=== PATIENT | male | born 1975 | race Caucasian/White ===

== ENCOUNTER 2016-07-10 10:47 | Emergency (ER) | payer BC ==
[~2016-07-10] VITALS: Ht 182.9 cm; Wt 95.0 kg
[2016-07-10 10:52] VITALS: BP 117/86; PULSE 77; RESP 18; TEMP 97.9; O2SAT 100
[2016-07-10] MEDS ORDERED: CLIN1CAP5 PO (11:31)
--- NOTE | 2016-07-10 11:31 | PD ---
HPI Chief Complaint: Skin Problem Time Seen by Provider: 11:23 Travel History International Travel<30 days: Yes Contact w/Intl Traveler<30days: Yes Name of Country Traveled to: [place] Traveled to known affect area: No History of Present Illness HPI Patient is a 40-year-old male who presents emergency department for evaluation of a lump on his buttock. Patient states that he has had fevers as well. He states his symptoms started yesterday when he started feeling feverish on Thursday after he ran on the beach. He has not taken anything for the fever. He denies any nausea, vomiting, abdominal pain, rectal pain, change in bowel habits. He denies any history of the same. He does report that he was a sick child always getting fevers. He denies any flulike symptoms. He denies any significant pain but states it feels tender. PFSH Past Medical History Medical History: Denies Significant Hx Tetanus Vaccination: > 5 Years Influenza Vaccination: No Past Surgical History Appendectomy: Yes Social History Alcohol Use: Yes (Occ./weekends) Tobacco Use: No Substance Use: No Allergies-Medications (Allergen,Severity, Reaction): Coded Allergies: Penicillin (Verified Allergy, Unknown, Unknown, 07/10/16) Reported Meds & Prescriptions Reported Meds & Active Scripts Active No Active Prescriptions or Reported Medications Review of Systems Except as stated in HPI: all other systems reviewed are Neg General / Constitutional: Positive: Fever Skin: Positive Lumps Physical Exam Narrative GENERAL: Well-nourished, well-developed patient. SKIN: Warm and dry. 2 cm area of firmness noted to the right inner buttock approximately 3 cm from the rectum. No erythema, fluctuance or induration noted. HEAD: Normocephalic. EYES: No scleral icterus. No injection or drainage. NECK: Supple, trachea midline. No JVD or lymphadenopathy. CARDIOVASCULAR: Regular rate and rhythm without murmurs, gallops, or rubs. RESPIRATORY: Breath sounds equal bilaterally. No accessory muscle use. GASTROINTESTINAL: Abdomen soft, non-tender, nondistended. MUSCULOSKELETAL: No cyanosis, or edema. RECTAL EXAM: No masses or tenderness, stool is brown. BACK: Nontender without obvious deformity. No CVA tenderness. Data Data Last Documented VS Vital Signs Date Time Temp Pulse Resp B/P Pulse Ox O2 Delivery O2 Flow Rate FiO2 07/10/16 10:52 97.9 77 18 117/86 100 [facility] Medical Decision Making Medical Screen Exam Complete: Yes Emergency Medical Condition: Yes Interpretation(s) Vital Signs Date Time Temp Pulse Resp B/P Pulse Ox O2 Delivery O2 Flow Rate FiO2 07/10/16 10:52 97.9 77 18 117/86 100 Differential Diagnosis Perirectal abscess versus rectal abscess versus cellulitis versus boil versus other Narrative Course Patient is a 40-year-old male who presented to the emergency department for evaluation of a lump on his buttock. On exam there is an area of firmness on the right inner buttock, rectal exam is benign. Area is nonfluctuant, at this time patient be treated with oral antibiotics. He was given strict follow-up instructions. He was encouraged to come back to the emergency department for I& D or for reevaluation if area became enlarged, more tender. Patient was advised on medications that he will be prescribed. He was also reassured that at this time he has no fever and that there does not appear to be any systemic illness. Patient can apply warm compresses, sits baths. He is encouraged follow-up with primary care as well. Patient verbalized understanding of these instructions. Patient is stable for discharge. Diagnosis Primary Impression: Abscess of buttock, right Referrals: Primary Care Physician Patient Instructions: Abscess (GEN), Abscess Incision and Drainage (ED), General Instructions Additional Instructions: Apply warm compresses to affected area Sitz bath's Complete full course of antibiotics as directed Return to emergency department immediately for any new or worsening symptoms Follow-up with your primary doctor Med/Other Pt SpecificInfo: Prescription(s) given Scripts Clindamycin 150 Mg Lav224 Mg PO TID 10 Days Ref 0 Prov:Cheryl Verde 07/10/16 Disposition: 01 DISCHARGE HOME Condition: Stable Cheryl Verde Jul 10, 2016 11:31
[2016-07-11] MEDS ORDERED: HYDR-3516 PO (12:59)
== END 2016-07-10 11:36 | disposition home or self-care (01) ==
LOC: PHEFT 10:47
DX: L02.31 Cutaneous abscess of buttock (principal)
CPT/HCPCS: 99283

== ENCOUNTER 2016-07-10 22:58 | Observation (INO) | payer BC ==
[~2016-07-10 22:58] MED LIST: CLIN1CAP5 PO
[2016-07-10 23:00] VITALS: BP 130/81; PULSE 93; RESP 16; TEMP 100.3; O2SAT 97
[2016-07-10] MEDS ORDERED: SODIUM CHLOR 0.9% 1000 ML INJ 1,000 ML IV ONE (23:23)
[2016-07-10] MEDS ORDERED: SODIUM CHLOR 0.9% 1000 ML INJ 800 ML IV ONE (23:23)
--- NOTE | 2016-07-10 23:29 | PD ---
HPI Chief Complaint: Fever Time Seen by Provider: 23:17 Travel History International Travel<30 days: Yes Contact w/Intl Traveler<30days: Yes Name of Country Traveled to: [place], [place], [place] Traveled to known affect area: No History of Present Illness HPI 40-year-old male here for evaluation of perirectal pain and fever. For last 5 days the patient has had fever and has noticed increasing pain and tenderness to his right buttock/rectal area. He went to our [place] facility earlier today and was started on clindamycin. He states he has been taking Advil every 4 hours, however fever persists. No abdominal pain. No nausea or vomiting. No diarrhea. No chest pain or dyspnea. No cough. History of appendectomy. No other abdominal surgeries. No urinary symptoms. No history of IVDU. PFSH Past Surgical History Appendectomy: Yes Social History Alcohol Use: Yes (Occ./weekends) Tobacco Use: No Substance Use: No Allergies-Medications (Allergen,Severity, Reaction): Coded Allergies: Penicillin (Verified Allergy, Unknown, Unknown, 07/10/16) Reported Meds & Prescriptions Reported Meds & Active Scripts Active Clindamycin (Clindamycin HCl) 150 Mg Cap 300 Mg PO TID 10 Days Review of Systems Except as stated in HPI: all other systems reviewed are Neg Physical Exam Narrative GENERAL: Well-developed, well-nourished, diaphoretic, no acute distress. SKIN: Diaphoretic, warm. HEAD: Atraumatic. Normocephalic. EYES: Pupils equal and round. No scleral icterus. No injection or drainage. ENT: Mucous membranes pink and moist. NECK: Trachea midline. No JVD. No nuchal rigidity. CARDIOVASCULAR: Regular rate and rhythm. RESPIRATORY: No accessory muscle use. Clear to auscultation. Breath sounds equal bilaterally. GASTROINTESTINAL: Abdomen soft, non-tender, nondistended. RECTUM: Significant tenderness to right perirectal area with a large area of induration, no fluctuance. This area was evaluated using a bedside ultrasound and shows a large hypoechoic region which is likely an abscess. No hemorrhoids. MUSCULOSKELETAL: No obvious deformities. No clubbing. No cyanosis. No edema. NEUROLOGICAL: Awake and alert. No obvious cranial nerve deficits. Motor grossly within normal limits. Normal speech. PSYCHIATRIC: Appropriate mood and affect; insight and judgment normal. Data Data Last Documented VS Vital Signs Date Time Temp Pulse Resp B/P Pulse Ox O2 Delivery O2 Flow Rate FiO2 07/10/16 23:45 98.5 61 18 135/63 95 Room Air Orders Complete Blood Count With Diff (07/10/16 23:23) Comprehensive Metabolic Panel (07/10/16 23:23) Prothrombin Time / Inr (Pt) (07/10/16 23:23) Act Partial Throm Time (Ptt) (07/10/16 23:23) Lactic Acid Sepsis Protocol (07/10/16 23:23) Blood Culture (07/10/16 23:23) Ecg Monitoring (07/10/16 23:23) Iv Access Insert/Monitor (07/10/16 23:23) Oximetry (07/10/16 23:23) Acetaminophen (Tylenol) (07/10/16 23:30) Sodium Chlor 0.9% 1000 Ml Inj (Ns 1000 M (07/10/16 23:23) Sodium Chlor 0.9% 1000 Ml Inj (Ns 1000 M (07/10/16 23:23) Morphine Inj (Morphine Inj) (07/10/16 23:30) Iohexol 350 Inj (Omnipaque 350 Inj) (07/11/16 00:09) Ct Abd/Pel W Iv Contrast(Rout) (07/11/16 23:23) Labs Laboratory Tests Test 07/10/16 07/10/16 23:30 23:41 White Blood Count 15.3 TH/MM3 Red Blood Count 4.46 MIL/MM3 Hemoglobin 13.5 GM/DL Hematocrit 39.3 % Mean Corpuscular Volume 88.1 FL Mean Corpuscular Hemoglobin 30.2 PG Mean Corpuscular Hemoglobin 34.2 % Concent Red Cell Distribution Width 12.7 % Platelet Count 162 TH/MM3 Mean Platelet Volume 9.8 FL Neutrophils (%) (Auto) 73.3 % Lymphocytes (%) (Auto) 13.8 % Monocytes (%) (Auto) 11.5 % Eosinophils (%) (Auto) 1.1 % Basophils (%) (Auto) 0.3 % Neutrophils # (Auto) 11.2 TH/MM3 Lymphocytes # (Auto) 2.1 TH/MM3 Monocytes # (Auto) 1.8 TH/MM3 Eosinophils # (Auto) 0.2 TH/MM3 Basophils # (Auto) 0.0 TH/MM3 CBC Comment DIFF FINAL Differential Comment Prothrombin Time 11.4 SEC Prothromb Time International 1.0 RATIO Ratio Activated Partial 28.9 SEC Thromboplast Time Sodium Level 136 MEQ/L Potassium Level 3.7 MEQ/L Chloride Level 102 MEQ/L Carbon Dioxide Level 26.4 MEQ/L Anion Gap 8 MEQ/L Blood Urea Nitrogen 16 MG/DL Creatinine 1.20 MG/DL Estimat Glomerular Filtration 67 ML/MIN Rate Random Glucose 112 MG/DL Calcium Level 9.1 MG/DL Total Bilirubin 0.4 MG/DL Aspartate Amino Transf 24 U/L (AST/SGOT) Alanine Aminotransferase 36 U/L (ALT/SGPT) Alkaline Phosphatase 60 U/L Total Protein 7.6 GM/DL Albumin 3.7 GM/DL Lactic Acid Level 0.8 mmol/L [facility] Medical Decision Making Medical Screen Exam Complete: Yes Emergency Medical Condition: Yes Medical Record Reviewed: Yes Differential Diagnosis Perirectal abscess, sepsis, cellulitis, mass, bacteremia, Narrative Course Initial vital signs show heart rate 93, blood pressure 130/81, pulse ox 97% on room air, oral temp of 100.3 degrees Fahrenheit. CBC is remarkable for WBC 15.3 with 73% neutrophils. CMP is unremarkable. Lactic acid is 0.8. CT abdomen pelvis shows a 3.3 cm right perianal fluid collection which is most likely an abscess. The patient was given clindamycin and Flagyl. There is no colorectal coverage for the emergency department tonight. He will be admitted for overnight observation for colorectal surgery consultation in the morning. Case discussed with hospitalist Dr. Gomez who will admit the patient to his service. Diagnosis Primary Impression: Perianal abscess Admitting Information Admitting Physician Requests: Observation [place] Mccarthy MD Jul 10, 2016 23:29
[2016-07-10] MEDS ORDERED: MORPHINE SULFATE 4 MG/ML INJ IV PUSH ONE (23:30)
[2016-07-10] MEDS ORDERED: ACETAMINOPHEN 325 MG TAB PO ONE (23:30)
[2016-07-10 23:45] VITALS: BP 135/63; PULSE 61; RESP 18; TEMP 98.5; O2SAT 95
[2016-07-11 00:01] LABS: AUTOMATED NEUTROPHIL # 11.2 TH/MM3 (1.8-7.7); BASOPHIL % 0.3 % (0.0-2.0); EOSINOPHIL # 0.2 TH/MM3 (0-0.4); EOSINOPHIL % 1.1 % (0.0-4.0); HEMATOCRIT 39.3 % (39.0-51.0); HEMO FLAGS DIFF FINAL; LYMPH % 13.8 % (9.0-44.0); LYMPHOCYTE # 2.1 TH/MM3 (1.0-4.8); MEAN CELL VOLUME 88.1 FL (80.0-100.0); MEAN CORPUSCULAR HEMOGLOBIN 30.2 PG (27.0-34.0); MEAN CORPUSCULAR HGB CONC 34.2 % (32.0-36.0); MONO % 11.5 % (0.0-8.0); NEUT % 73.3 % (16.0-70.0); PLATELET COUNT 162 TH/MM3 (150-450); RED BLOOD COUNT 4.46 MIL/MM3 (4.50-5.90); RED CELL DISTRIBUTION WIDTH 12.7 % (11.6-17.2); WHITE BLOOD COUNT 15.3 TH/MM3 (4.0-11.0)
[2016-07-11 00:09] LABS: APTT (PATIENT) 28.9 SEC (24.3-30.1); PROTHROMBIN TIME - PATIENT 11.4 SEC (9.8-11.6)
[2016-07-11] MEDS ORDERED: IOHEXOL 350 MG/ML 10 ML VIAL (for RAD DIAG) IV ONE (00:09)
[2016-07-11 00:11] LABS: ALT (GPT) 36 U/L (12-78); ANION GAP 8 MEQ/L (5-15); AST (GOT) 24 U/L (15-37); BICARBONATE 26.4 MEQ/L (21.0-32.0); BLOOD UREA NITROGEN 16 MG/DL (7-18); CHLORIDE 102 MEQ/L (98-107); GLOMERULAR FILTRATION RATE 67 ML/MIN (>89); POTASSIUM 3.7 MEQ/L (3.5-5.1); SODIUM (NA) 136 MEQ/L (136-145)
[2016-07-11 00:14] LABS: ALKALINE PHOSPHATASE 60 U/L (45-117); TOTAL BILIRUBIN ADULT 0.4 MG/DL (0.2-1.0)
--- NOTE | 2016-07-11 00:27 | RADRPT ---
EXAM DATE/TIME: 07/11/2016 00:00 [place] COMPARISON: No previous studies available for comparison. INDICATIONS : Fever, possible perirectal abscess. IV CONTRAST: 98 cc Omnipaque 350 (iohexol) IV ORAL CONTRAST: No oral contrast ingested. RADIATION DOSE: 13.97 CTDIvol (mGy) MEDICAL HISTORY : None SURGICAL HISTORY : Appendectomy. ENCOUNTER: Initial ACUITY: 1 day PAIN SCALE: 6/10 LOCATION: abdomen TECHNIQUE: Volumetric scanning of the abdomen and pelvis was performed. Using automated exposure control and ad justment of the mA and/or kV according to patient size, radiation dose was kept as low as reasonably achievable to obtain optimal diagnostic quality images. FINDINGS: CT Abdomen: The spleen, pancreas, right kidney, adrenals are unremarkable. There is no evidence for a ny appreciable pathological adenopathy, free fluid, or bowel obstruction. There is questionable 2 cm low attenuating lesion in the left hepatic lobe very subtle in appearance possibly artifactually cre ated. It could potentially be a hemangioma. The appearance is nonspecific. There is a tiny subcentime ter simple cyst in the left kidney. CT pelvis: There is a well-defined fluid collection adjacent to the anus on the right side measuring 3.3 cm in size most likely an abscess. The prostate gland is inhomogeneous and measures 3.4 x 4.2 cm in AP and transverse diameters and nonspecific. CONCLUSION: 1. Small perianal abscess on the right side in the perineum. 2. Questionable low attenuating lesion in the liver and follow up is suggested with abdominal MRI wit h intravenous contrast in 3 months. Riya Nguyen MD on July 11, 2016 at 0:21 Board Certified Radiologist. This report was verified electronically.
[2016-07-11] MEDS ORDERED: CLINDAMYCIN INJ 600 MG in SODIUM CHLORIDE 0.9% INJ 100 ML IV ONE (00:45)
[2016-07-11] MEDS ORDERED: metroNIDAZOLE 500 MG INJ 100 ML IV ONE (00:45)
[2016-07-11 01:59] VITALS: BP 129/58; PULSE 60; RESP 18; TEMP 98; O2SAT 97
[2016-07-11] MEDS ORDERED: NALOXONE HCL 0.4 MG/ML AMP IV PRN (06:00)
[2016-07-11] MEDS ORDERED: SODIUM CHLORIDE 0.9% FLUSH 5 ML FLUSH FLUSH PRN (06:00)
[2016-07-11] MEDS ORDERED: CIPROFLOXACIN 400 MG PREMIX 200 ML IV SCH (07:45)
[2016-07-11] MEDS ORDERED: ONDANSETRON HCL 4 MG/2 ML VIAL IV PUSH PRN (07:45)
[2016-07-11] MEDS ORDERED: metroNIDAZOLE 500 MG INJ 100 ML IV SCH (07:45)
[2016-07-11] MEDS ORDERED: ACETAMINOPHEN/HYDROcodone 325 MG/5 MG TAB PO PRN (07:45)
[2016-07-11] MEDS ORDERED: ACETAMINOPHEN 325 MG TAB PO PRN (07:45)
--- NOTE | 2016-07-11 07:46 | HHI.HP ---
[facility] No Primary Care Physician Admission Diagnosis perianal abscess Diagnoses: (1) Perianal abscess Travel History International Travel<30 Days: Yes Contact w/Intl Traveler <30 Da: Yes Name of Country Traveled to: [place], [place], [place] Traveled to Known Affected Are: No Sepsis Criteria SIRS Criteria (2 or more): Heart rate over 90, WBC > 73047, < 4000 or > 10% bands Sepsis Criteria (SIRS+source): Infect source susp/known Criteria Outcome: Meets sepsis criteria History of Present Illness patient is a 40 y/o male who presented to ER with pain to the right buttock. he says that he started to feel a ' pimple' a few days ago. it gradually got bigger and more painful and along with it he started to have some fever at home. he says that he tried some advil with no improvement. he came to ER a couple of days ago and was started on Clindamycin with no significant relief. he denies any abdominal pain, nausea or vomiting. Review of Systems Constitutional: COMPLAINS OF: Fever, DENIES: Weight loss, Chills, Night Sweats Eyes: DENIES: Blurred vision, Diplopia, Vision loss, Double Vision Ears, nose, mouth, throat: DENIES: Tinnitus, Vertigo, Throat pain, Epistaxis Respiratory: DENIES: Apneas, Cough, Snoring, Wheezing, Hemoptysis, Sputum production, Shortness of breath Cardiovascular: DENIES: Chest pain, Palpitations, Syncope, Dyspnea on Exertion , PND, Lower Extremity Edema, Orthopnea, Claudication Gastrointestinal: DENIES: Abdominal pain, Black stools, Bloody stools, Constipation, Diarrhea, Nausea, Vomiting, Difficulty Swallowing, Anorexia Genitourinary: DENIES: Urinary frequency, Urgency, Hematuria, Dysuria Musculoskeletal: DENIES: Joint pain, Muscle aches, Stiffness, Joint Swelling Integumentary: DENIES: Rash Neurologic: DENIES: Abnormal gait, Headache, Localized weakness, Paresthesias, Seizures, Speech Problems, Tremor, Poor Balance Psychiatric: DENIES: Anxiety, Confusion, Mood changes, Depression, Hallucinations, Agitation, Suicidal Ideation, Homicidal Ideation, Delusions Other pain to the right buttock. Past Family Social History Past Medical History not significant. tuberculosis Past Surgical History appendectomy Reported Medications clindamycin Allergies: Coded Allergies: Penicillin (Verified Allergy, Unknown, Unknown, 07/10/16) Active Ordered Medications Current Medications Acetaminophen 650 mg 650 mg ONCE ONCE PO Last administered on 07/10/16 23:50 ; Start 07/10/16 at 23:30; Stop 07/10/16 at 23:31; Status DC Sodium Chloride 1,000 ml @ 1,000 mls/hr Q1H ONCE IV Last administered on 23:49; Start 07/10/16 at 23:23; Stop 07/11/16 at 00:22; Status DC Sodium Chloride (NS 1000 ml Inj) 800 ml @ 1,000 mls/hr Q48M ONCE IV Last administered on 07/10/16 23:50; Start 07/10/16 at 23:23; Stop 07/11/16 at 00:10 ; Status DC Morphine Sulfate (Morphine Inj) 4 mg ONCE ONCE IV PUSH Last administered on 23:50; Start 07/10/16 at 23:30; Stop 07/10/16 at 23:31; Status DC Iohexol 98 ml 98 ml STK-MED ONCE IV Last administered on 07/11/16 00:09; Start 07/11/16 at 00:09; Stop 07/11/16 at 00:10; Status DC Metronidazole 100 ml @ 100 mls/hr ONCE ONCE IV Last administered on 00:57; Start 07/11/16 at 00:45; Stop 07/11/16 at 01:44; Status DC Clindamycin Phosphate 600 mg/ Sodium Chloride 104 ml @ 208 mls/hr ONCE ONCE IV Last administered on 07/11/16 02:18; Start 07/11/16 at 00:45; Stop at 01:14; Status DC Sodium Chloride (NS 1000 ml Inj) 1,000 ml @ 100 mls/hr Q10H IV ; Start at 05:51; Stop 07/12/16 at 05:50 IV Flush (NS Flush) 2 ml UNSCH PRN FLUSH FLUSH AFTER USING IV ACCESS; Start at 06:00 IV Flush (NS Flush) 2 ml BID FLUSH ; Start 07/11/16 at 09:00 Naloxone HCl (Narcan Inj) 0.4 mg UNSCH PRN IV SEE LABEL COMMENTS; Start at 06:00 Family History not relevant to this admission. Social History doesn't smoke. occasionally drinks. Physical Exam Vital Signs Vital Signs Date Time Temp Pulse Resp B/P Pulse Ox O2 Delivery O2 Flow Rate FiO2 07/11/16 01:59 98.0 60 18 129/58 97 Room Air 07/10/16 23:45 98.5 61 18 135/63 95 Room Air 07/10/16 23:00 100.3 93 16 130/81 97 Room Air Physical Exam GENERAL: This is a well-nourished, well-developed patient, in no apparent distress. SKIN: No rashes, ecchymoses or lesions. Cool and dry. HEAD: Atraumatic. Normocephalic. No temporal or scalp tenderness. EYES: Pupils equal round and reactive. Extraocular motions intact. No scleral icterus. No injection or drainage. ENT: Nose without bleeding, purulent drainage or septal hematoma. Throat without erythema, tonsillar hypertrophy or exudate. Uvula midline. Airway patent. NECK: Trachea midline. No JVD or lymphadenopathy. Supple, nontender, no meningeal signs. CARDIOVASCULAR: Regular rate and rhythm without murmurs, gallops, or rubs. RESPIRATORY: Clear to auscultation. Breath sounds equal bilaterally. No wheezes , rales, or rhonchi. GASTROINTESTINAL: Abdomen soft, non-tender, nondistended. No hepato-splenomegaly , or palpable masses. No guarding. MUSCULOSKELETAL: Extremities without clubbing, cyanosis, or edema. No joint tenderness, effusion, or edema noted. No calf tenderness. Negative Homans sign bilaterally. NEUROLOGICAL: Awake and alert. Cranial nerves II through XII intact. Motor and sensory grossly within normal limits. Five out of 5 muscle strength in all muscle groups. Normal speech. Laboratory Laboratory Tests Test 07/10/16 07/10/16 23:30 23:41 White Blood Count 15.3 Red Blood Count 4.46 Hemoglobin 13.5 Hematocrit 39.3 Mean Corpuscular Volume 88.1 Mean Corpuscular Hemoglobin 30.2 Mean Corpuscular Hemoglobin 34.2 Concent Red Cell Distribution Width 12.7 Platelet Count 162 Mean Platelet Volume 9.8 Neutrophils (%) (Auto) 73.3 Lymphocytes (%) (Auto) 13.8 Monocytes (%) (Auto) 11.5 Eosinophils (%) (Auto) 1.1 Basophils (%) (Auto) 0.3 Neutrophils # (Auto) 11.2 Lymphocytes # (Auto) 2.1 Monocytes # (Auto) 1.8 Eosinophils # (Auto) 0.2 Basophils # (Auto) 0.0 CBC Comment DIFF FINAL Differential Comment Prothrombin Time 11.4 Prothromb Time International 1.0 Ratio Activated Partial 28.9 Thromboplast Time Sodium Level 136 Potassium Level 3.7 Chloride Level 102 Carbon Dioxide Level 26.4 Anion Gap 8 Blood Urea Nitrogen 16 Creatinine 1.20 Estimat Glomerular Filtration 67 Rate Random Glucose 112 Calcium Level 9.1 Total Bilirubin 0.4 Aspartate Amino Transf 24 (AST/SGOT) Alanine Aminotransferase 36 (ALT/SGPT) Alkaline Phosphatase 60 Total Protein 7.6 Albumin 3.7 Lactic Acid Level 0.8 Date/Time Procedure Status Source Growth 07/10/16 23:40 Aerobic Blood Culture Received Blood Peripheral Pending 07/10/16 23:40 Anaerobic Blood Culture Received Blood Peripheral Pending Result Diagram: 07/10/16 2330 07/10/16 2330 Imaging Last Impressions Abdomen/Pelvis CT 07/11/162322 Signed Impressions: Service Date/Time: Monday, July 11, 2016 00:00 - CONCLUSION: 1. Small perianal abscess on the right side in the perineum. 2. Questionable low attenuating lesion in the liver and follow up is suggested with abdominal MRI with intravenous contrast in 3 months. Riya Nguyen MD Assessment and Plan Assessment and Plan A/P - sepsis due to perianal abscess- failed outpatient therapy continue with antibiotics- pain control- colorectal surgery consulted -liver lesion- f/u as outpatient- this was d/w the patient Discussed Condition With the patient. Gwendolyn Mitchell MD Jul 11, 2016 07:45
[2016-07-11 08:00] VITALS: BP 145/70; PULSE 83; RESP 18; TEMP 103.1; O2SAT 98
[2016-07-11] MEDS: SODIUM CHLOR 0.9% 1000 ML INJ 1,000 ML IV SCH ×2 (08:00→16:28)
[2016-07-11] MEDS: CIPROFLOXACIN 400 MG PREMIX 200 ML IV SCH ×2 (08:01→20:00)
[2016-07-11] MEDS: SODIUM CHLORIDE 0.9% FLUSH 5 ML FLUSH FLUSH SCH ×2 (08:01→20:30)
[2016-07-11] MEDS: metroNIDAZOLE 500 MG INJ 100 ML IV SCH ×2 (11:09→16:27)
[2016-07-11 11:36] VITALS: TEMP 99.9
[2016-07-11] MEDS ORDERED: LIDOCAINE HCL 1% 50 ML VIAL ONE (12:41)
[2016-07-11] MEDS ORDERED: MORPHINE SULFATE 4 MG/ML INJ IV PUSH ONE (12:45)
[2016-07-11] MEDS ORDERED: LIDOCAINE 1%/EPINEPHrine 1:100,000 SOLN 50 ML VIAL INFIL ONE (12:45)
[2016-07-11] MEDS ORDERED: HYDR-3516 PO (12:59)
--- NOTE | 2016-07-11 13:13 | MB ---
cc: MONA BARRERA M.D. DATE OF CONSULTATION: 07/11/2016 CHIEF COMPLAINT Perianal abscess. HISTORY OF PRESENT ILLNESS The patient is a 40-year-old healthy male who about four or five days ago noticed a small pimple/lump in the anal area. This has gradually gotten bigger and bigger and more painful. He has had no discharge however. He has not had any previous anal abscesses. He did have some low-grade fevers at home. He is not able to quantify that. He was seen in the emergency department two days ago and was started on clindamycin, but there was no improvement in his symptoms so he came back to the emergency room. PAST MEDICAL HISTORY Tuberculosis. PAST SURGICAL HISTORY Appendectomy. ALLERGIES PENICILLIN. MEDICATIONS None. REVIEW OF SYSTEMS The review of systems is negative for abdominal pain, nausea, vomiting, weight loss, chills, cough, shortness of breath, chest pain, dysuria, hematuria, headache, difficulty with mood or mentation, difficulty with ambulation. PHYSICAL EXAMINATION GENERAL: An alert male who appears uncomfortable. NEUROLOGIC: Grossly intact. SKIN: Warm and dry. HEAD: Normocephalic, atraumatic. CARDIOVASCULAR: Regular rate. CHEST: Breathing is symmetric bilaterally and nonlabored. ABDOMEN: Benign. EXTREMITIES: No edema. ANAL: External anal exam on the right side just in the lateral position, the patient has a fluctuant protrusion which is mildly warm. LABORATORY DATA Laboratory work reveals a white count of 15.3, hemoglobin of 13.5 and platelets of 162. Chemistry is basically normal with the exception of a glucose of 112. Coagulation is normal. IMPRESSION Perianal abscess. PLAN I will drain him here in the emergency department today, and then he can be discharged home with some pain medicine. He will not need antibiotics. I will follow-up with him in the office later this week. MD LAURA Willson/GIOVANY /12:33 PM /1:07 PM DAVIS
[2016-07-11] MEDS: IBUPROFEN 400 MG TAB PO PRN (14:12)
[2016-07-11 15:24] VITALS: BP 125/55; PULSE 88; RESP 18; TEMP 100.6; O2SAT 95
[2016-07-11 15:56] VITALS: TEMP 100.6
[2016-07-11 19:57] VITALS: BP 99/55; PULSE 58; RESP 20; TEMP 98.3; O2SAT 96
[2016-07-12] MEDS: SODIUM CHLOR 0.9% 1000 ML INJ 1,000 ML IV SCH (00:31)
[2016-07-12] MEDS: metroNIDAZOLE 500 MG INJ 100 ML IV SCH ×2 (00:31→09:00)
[2016-07-12 00:37] VITALS: BP 105/60; PULSE 69; RESP 19; TEMP 100.2; O2SAT 96
[2016-07-12] MEDS: IBUPROFEN 400 MG TAB PO PRN (00:43)
[2016-07-12 04:43] VITALS: BP 114/69; PULSE 56; RESP 19; TEMP 99.3; O2SAT 97
[2016-07-12 06:13] LABS: ANION GAP 4 MEQ/L (5-15); AST (GOT) 13 U/L (15-37); BICARBONATE 29.6 MEQ/L (21.0-32.0); BLOOD UREA NITROGEN 14 MG/DL (7-18); CHLORIDE 105 MEQ/L (98-107); GLOMERULAR FILTRATION RATE 78 ML/MIN (>89); POTASSIUM 4.6 MEQ/L (3.5-5.1); SODIUM (NA) 139 MEQ/L (136-145)
[2016-07-12 06:14] LABS: ALKALINE PHOSPHATASE 52 U/L (45-117); ALT (GPT) 24 U/L (12-78); TOTAL BILIRUBIN ADULT 0.6 MG/DL (0.2-1.0)
[2016-07-12 07:05] LABS: AUTOMATED NEUTROPHIL # 8.1 TH/MM3 (1.8-7.7); BASOPHIL % 0.1 % (0.0-2.0); EOSINOPHIL # 0.2 TH/MM3 (0-0.4); EOSINOPHIL % 1.8 % (0.0-4.0); HEMATOCRIT 35.6 % (39.0-51.0); HEMO FLAGS DIFF FINAL; LYMPH % 18.1 % (9.0-44.0); LYMPHOCYTE # 2.2 TH/MM3 (1.0-4.8); MEAN CELL VOLUME 88.9 FL (80.0-100.0); MEAN CORPUSCULAR HEMOGLOBIN 30.2 PG (27.0-34.0); MEAN CORPUSCULAR HGB CONC 33.9 % (32.0-36.0); MONO % 13.4 % (0.0-8.0); NEUT % 66.6 % (16.0-70.0); PLATELET COUNT 141 TH/MM3 (150-450); RED CELL DISTRIBUTION WIDTH 12.8 % (11.6-17.2); WHITE BLOOD COUNT 12.2 TH/MM3 (4.0-11.0)
[2016-07-12 07:31] VITALS: BP 102/62; PULSE 57; RESP 18; TEMP 97.9; O2SAT 96
[2016-07-12] MEDS: CIPROFLOXACIN 400 MG PREMIX 200 ML IV SCH (08:00)
--- NOTE | 2016-07-12 08:55 | HHI.PR ---
Subjective Remarks buttock pain has much improved. low grade fever last night but no fever this morning. wants to go home today. Objective Vitals Vital Signs Date Time Temp Pulse Resp B/P Pulse Ox O2 Delivery O2 Flow Rate FiO2 07/12/16 07:31 97.9 57 18 102/62 96 07/12/16 04:43 99.3 56 19 114/69 97 07/12/16 00:37 100.2 69 19 105/60 96 07/11/16 19:57 98.3 58 20 99/55 96 07/11/16 15:56 100.6 07/11/16 15:24 100.6 88 18 125/55 95 07/11/16 11:36 99.9 Result Diagram: 07/12/16 0504 07/12/16 0504 Imaging Last Impressions Abdomen/Pelvis CT 07/11/162322 Signed Impressions: Service Date/Time: Monday, July 11, 2016 00:00 - CONCLUSION: 1. Small perianal abscess on the right side in the perineum. 2. Questionable low attenuating lesion in the liver and follow up is suggested with abdominal MRI with intravenous contrast in 3 months. Riya Nguyen MD Objective Remarks GENERAL: This is a well-nourished, well-developed patient, in no apparent distress. CARDIOVASCULAR: Regular rate and regular rhythm without murmurs, gallops, or rubs. RESPIRATORY: Clear to auscultation. Breath sounds equal bilaterally. No wheezes , rales, or rhonchi. GASTROINTESTINAL: Abdomen soft, non-tender, nondistended. Normal, active bowel sounds MUSCULOSKELETAL: Extremities without clubbing, cyanosis, or edema. NEURO: Alert & Oriented x4 to person, place, time, situation. Moves all ext x4 skin; s/p perianal abscess drainage- site covered with clean dressing. Procedures drainage of the perianal abscess Medications and IVs Current Medications Acetaminophen 650 mg 650 mg ONCE ONCE PO Last administered on 07/10/16 23:50 ; Start 07/10/16 at 23:30; Stop 07/10/16 at 23:31; Status DC Sodium Chloride 1,000 ml @ 1,000 mls/hr Q1H ONCE IV Last administered on 23:49; Start 07/10/16 at 23:23; Stop 07/11/16 at 00:22; Status DC Sodium Chloride (NS 1000 ml Inj) 800 ml @ 1,000 mls/hr Q48M ONCE IV Last administered on 07/10/16 23:50; Start 07/10/16 at 23:23; Stop 07/11/16 at 00:10 ; Status DC Morphine Sulfate (Morphine Inj) 4 mg ONCE ONCE IV PUSH Last administered on 23:50; Start 07/10/16 at 23:30; Stop 07/10/16 at 23:31; Status DC Iohexol 98 ml 98 ml STK-MED ONCE IV Last administered on 07/11/16 00:09; Start 07/11/16 at 00:09; Stop 07/11/16 at 00:10; Status DC Metronidazole 100 ml @ 100 mls/hr ONCE ONCE IV Last administered on 00:57; Start 07/11/16 at 00:45; Stop 07/11/16 at 01:44; Status DC Clindamycin Phosphate 600 mg/ Sodium Chloride 104 ml @ 208 mls/hr ONCE ONCE IV Last administered on 07/11/16 02:18; Start 07/11/16 at 00:45; Stop at 01:14; Status DC Sodium Chloride (NS 1000 ml Inj) 1,000 ml @ 100 mls/hr Q10H IV Last administered on 07/12/16 00:31; Start 07/11/16 at 05:51; Stop 07/12/16 at 05:50 ; Status DC IV Flush (NS Flush) 2 ml UNSCH PRN FLUSH FLUSH AFTER USING IV ACCESS; Start at 06:00 IV Flush (NS Flush) 2 ml BID FLUSH ; Start 07/11/16 at 09:00 Naloxone HCl 0.4 mg 0.4 mg UNSCH PRN IV SEE LABEL COMMENTS; Start 07/11/16 at 06:00 Ciprofloxacin/ Dextrose 200 ml @ 200 mls/hr Q12H IV ; Start 07/11/16 at 07:45; Stop 07/11/16 at 07:45; Status DC Metronidazole (Flagyl 500 Mg Inj) 100 ml @ 100 mls/hr Q8H IV ; Start 07/11/16 at 07:45; Stop 07/11/16 at 07:45; Status DC Acetaminophen (Tylenol) 650 mg Q4H PRN PO FEVER,PAIN 1-3 Last administered on 08:01; Start 07/11/16 at 07:45; Stop 07/11/16 at 13:14; Status DC Acetaminophen/ Hydrocodone Bitart ([place] 5-325 Mg) 1 tab Q4H PRN PO PAIN >3; Start 07/11/16 at 07:45 Ondansetron HCl 4 mg 4 mg Q8HR PRN IV PUSH NAUSEA; Start 07/11/16 at 07:45 Ciprofloxacin/ Dextrose 200 ml @ 200 mls/hr Q12H IV Last administered on 08:01; Start 07/11/16 at 08:00 Metronidazole (Flagyl 500 Mg Inj) 100 ml @ 100 mls/hr Q8H IV Last administered on 07/12/16 00:31; Start 07/11/16 at 09:00 Lidocaine/ Epinephrine (Xylocaine-Epi 1%-1:100,000 Inj) 50 ml ONCE ONCE INFIL ; Start 07/11/16 at 12:45; Stop 07/11/16 at 12:46; Status DC Morphine Sulfate (Morphine Inj) 4 mg ONCE ONCE IV PUSH Last administered on 13:08; Start 07/11/16 at 12:45; Stop 07/11/16 at 12:46; Status DC Lidocaine HCl (Xylocaine 1% Inj (50 ml)) 50 ml STK-MED ONCE .ROUTE ; Start 07/11 at 12:41; Stop 07/11/16 at 12:42; Status DC Ibuprofen (Motrin) 400 mg Q6HR PRN PO FEVER/PAIN 1-3 Last administered on 00:43; Start 07/11/16 at 13:15 A/P Assessment and Plan - sepsis due to perianal abscess- failed outpatient therapy- s/p drainage in ER colorectal surgery consult appreciated; recommended outpatient f/u with no antibiotics.continue pain control. -liver lesion- f/u as outpatient- this was d/w the patient Discharge Planning dc home today with f/u with pcp and surgery. see med list. d/w the patient and Gwendolyn Ludn MD Jul 12, 2016 08:55
--- NOTE | 2016-07-12 08:56 | HHI.DCPOC ---
Discharge Care Plan Diagnosis: (1) Perianal abscess Your Health Problems Are: Inflammation Swelling Goals to Promote Your Health * To prevent worsening of your condition and complications * To maintain your health at the optimal level Directions to Meet Your Goals Take your medications as prescribed Follow your dietary instruction Follow activity as directed Keep your appointments as scheduled Take your immunizations and boosters as scheduled If your symptoms worsen call your PCP, if no PCP go to Urgent Care Center or Emergency Room Smoking is Dangerous to Your Health. Avoid second hand smoke Call the 24-hour hour crisis hotline for domestic abuse at Gwendolyn Mitchell MD Jul 12, 2016 08:56
--- NOTE | 2016-07-12 08:57 | HHI.DS ---
Discharge Summary Admission Date Jul 11, 2016 at 00:39 Discharge Date: Jul 12, 2016 Admitting Diagnosis perianal abscess (1) Perianal abscess ICD Code: K61.0 Diagnosis: Principal Procedures drainage of the perianal abscess Brief History - From Admission patient is a 40 y/o male who presented to ER with pain to the right buttock. he says that he started to feel a ' pimple' a few days ago. it gradually got bigger and more painful and along with it he started to have some fever at home. he says that he tried some advil with no improvement. he came to ER a couple of days ago and was started on Clindamycin with no significant relief. he denies any abdominal pain, nausea or vomiting. CBC/BMP: 07/12/16 0504 07/12/16 0504 Significant Findings Laboratory Tests Test 07/10/16 07/12/16 23:30 05:04 White Blood Count 15.3 TH/MM3 12.2 TH/MM3 (4.0-11.0) (4.0-11.0) Red Blood Count 4.46 MIL/MM3 4.00 MIL/MM3 (4.50-5.90) (4.50-5.90) Neutrophils (%) (Auto) 73.3 % (16.0-70.0) Monocytes (%) (Auto) 11.5 % 13.4 % (0.0-8.0) (0.0-8.0) Neutrophils # (Auto) 11.2 TH/MM3 8.1 TH/MM3 (1.8-7.7) (1.8-7.7) Monocytes # (Auto) 1.8 TH/MM3 1.6 TH/MM3 (0-0.9) (0-0.9) Estimat Glomerular Filtration 67 ML/MIN (>89) 78 ML/MIN (>89) Rate Random Glucose 112 MG/DL (74-106) Hemoglobin 12.1 GM/DL (13.0-17.0) Hematocrit 35.6 % (39.0-51.0) Platelet Count 141 TH/MM3 (150-450) Anion Gap 4 MEQ/L (5-15) Calcium Level 8.4 MG/DL (8.5-10.1) Aspartate Amino Transf 13 U/L (15-37) (AST/SGOT) Albumin 3.0 GM/DL (3.4-5.0) Imaging Last Impressions Abdomen/Pelvis CT 07/11/16 0000 Signed Impressions: Service Date/Time: Monday, July 11, 2016 00:00 - CONCLUSION: 1. Small perianal abscess on the right side in the perineum. 2. Questionable low attenuating lesion in the liver and follow up is suggested with abdominal MRI with intravenous contrast in 3 months. Riya Nguyen MD PE at Discharge GENERAL: This is a well-nourished, well-developed patient, in no apparent distress. CARDIOVASCULAR: Regular rate and regular rhythm without murmurs, gallops, or rubs. RESPIRATORY: Clear to auscultation. Breath sounds equal bilaterally. No wheezes , rales, or rhonchi. GASTROINTESTINAL: Abdomen soft, non-tender, nondistended. Normal, active bowel sounds MUSCULOSKELETAL: Extremities without clubbing, cyanosis, or edema. NEURO: Alert & Oriented x4 to person, place, time, situation. Moves all ext x4 skin; s/p perianal abscess drainage- site covered with clean dressing. Hospital Course - sepsis due to perianal abscess- failed outpatient therapy- s/p drainage in ER colorectal surgery consult appreciated; recommended outpatient f/u with no antibiotics.continue pain control. -liver lesion- f/u as outpatient- this was d/w the patient Pt Condition on Discharge: Good Discharge Disposition: Discharge Home Discharge Time: <= 30 minutes Discharge Instructions DIET: Follow Instructions for: As Tolerated, No Restrictions Activities you can perform: Regular-No Restrictions Follow up Referrals: Colorectal Surgery - 1 Week with Es Waggoner MD PCP Follow-up New Medications: Hydrocodone-Acetaminophen (Hydrocodone-Acetaminophen) 5-325 mg Tab 1-2 TAB PO q6h PRN PAIN SCALE 1 TO 10 #30 TAB Discontinued Medications: Clindamycin (Clindamycin) 150 Mg Cap 300 MG PO TID Infection Days 10 Ref 0 CAP Gwendolyn Mitchell MD Jul 12, 2016 08:57
[2016-07-12] MEDS: SODIUM CHLORIDE 0.9% FLUSH 5 ML FLUSH FLUSH SCH (09:10)
--- NOTE | 2016-07-16 07:07 | MR ---
cc: MONA BARRERA M.D. DATE 07/11/2016 PREPROCEDURE DIAGNOSIS Perianal abscess POSTPROCEDURE DIAGNOSIS Perianal abscess PROCEDURE I&D anal abscess PROCEDURE COURSE The patient was in the emergency department. The area was cleansed with Betadine and the skin and subcutaneous tissue was injected with 1% lidocaine with 1:100,000 epinephrine. The area was then opened widely and a large amount of pus was expressed. At the close of the procedure, the abscess cavity was gently probed to be sure no further purulence was noted and a digital rectal examination was performed to be sure there was no abscess up inside the anus. The patient tolerated the procedure well. A dressing was then applied. He will be discharged and I will see him in the office next week. MD LAURA Willson/DJL /1:04 PM /6:59 AM DAVIS
== END 2016-07-12 11:07 | disposition home or self-care (01) ==
LOC: NEPE 22:58 → NEDA 07-11 00:39 → NEDH 07-11 04:59 → NEPHCDU 07-11 14:32
PROVIDERS: ADMIT Internal Medicine; ATTEND Internal Medicine
DX: A41.9 Sepsis, unspecified organism (principal); K61.0 Anal abscess; K76.9 Liver disease, unspecified; Z90.49 Acquired absence of other specified parts of digestive tract
CPT/HCPCS: 46050; 74177; 80053; 83605; 85025; 85610; 85730; 87040; 96361; 96374; 99284; G0378; J0744; J2270; J7030; Q9967